=== PATIENT | male | born 1995 | race Caucasian/White ===

== ENCOUNTER 2024-09-21 21:50 | Emergency (ER) | payer SELFPAY ==
[2024-09-21 21:56] VITALS: BP 123/74; PULSE 63; TEMP 36.4; O2SAT 97; BMI 22.4
--- NOTE | 2024-09-21 22:26 | PC.NURSE ---
Broken teeth left upper jaw line. States been on antibiotics and is traveling across country and lost his antibiotic
--- NOTE | 2024-09-21 22:30 | ED.DENTAL1 ---
HPI - Dental/Oral General Chief complaint: Dental/Oral Stated complaint: TOOTH ACHE Time Seen by Provider: 09/21/24 22:19 Source: patient Mode of arrival: walk-in Limitations: no limitations History of Present Illness HPI Narrative: dental abscess left upper molars. Was prescribed augmentin but did not store properly as he was driving long distance and the medication turned brown. He is driving back to [place]. He has pill dysphagia and is requesting liquid antibiotics. No fever or chills. Did have left maxilla facial swelling when he started the antibiotics but this has improved. no fevre or chills. No problem swallowing Related Data Allergies Allergy/AdvReac Type Severity Reaction Status Date / Time clindamycin Allergy Anaphylaxis Verified 09/21/24 22:09 epinephrine Allergy Anaphylaxis Verified 09/21/24 22:09 ibuprofen (From Motrin) Allergy Anaphylaxis Verified 09/21/24 22:09 ct dye Allergy Anaphylaxis Uncoded 09/21/24 22:09 Review of Systems ROS Status of ROS 10 or more systems reviewed and unremarkable except as noted in history and below PFSH PFSH Social History Little interest or pleasure in doing things: not at all Feeling down, depressed, or hopeless: not at all Exam Constitutional Vital Signs, click to edit/add: Last Vital Signs Temp 97.5 F L 09/21/24 21:56 Pulse 63 09/21/24 21:56 Resp 16 09/21/24 21:56 BP 123/74 09/21/24 21:56 Pulse Ox 97 09/21/24 21:56 O2 Del Method Room Air 09/21/24 21:56 Common normals: no apparent distress, average body habitus, oriented x3, no limitations, healthy appearing, alert and well nourished [facility] Common normals: normocephalic Other: multiple dental caries. mild swelling left upper pergingival molars Eye Common normals: EOMs intact bilaterally and conjunctivae normal Respiratory Common normals: normal respiratory effort, no retractions, no use of accessory muscles and clear to auscultation bilaterally Cardio Common normals: regular rate, regular rhythm, S1 normal heart sound and S2 normal heart sound Extremity Common normals: normal to inspection and full ROM Neuro Common normals: oriented x3, CN's II-XII intact bilaterally, moves all extremities and no focal motor deficits Psych Appearance: grossly normal Course Vital Signs Vital signs: Vital Signs Temperature 97.5 F L 09/21/24 21:56 Pulse Rate 63 09/21/24 21:56 Respiratory Rate 16 09/21/24 21:56 Blood Pressure 123/74 09/21/24 21:56 Pulse Oximetry 97 09/21/24 21:56 Oxygen Delivery Method Room Air 09/21/24 21:56 Temperature 97.5 F L 09/21/24 21:56 Pulse Rate 63 09/21/24 21:56 Respiratory Rate 16 09/21/24 21:56 Blood Pressure 123/74 09/21/24 21:56 Pulse Oximetry 97 09/21/24 21:56 Oxygen Delivery Method Room Air 09/21/24 21:56 MDM - Dental/Oral MDM Narrative Medical decision making narrative: presents with left molar dental abscess partially treated. He was taken augmentin but did not store properly as [place]. Here requesting refill of augmentin that was provided. Patient discharged in stable condition Discharge Plan Discharge Chief Complaint: Dental/Oral Clinical Impression: Dental abscess Patient Disposition: Home, Self-Care Condition: Good Mode of Transportation: Private Vehicle Print Language: Czech Instructions: Dental Abscess (ED) Additional Instructions: follow up with your dentist
[2024-09-21] MEDS: AMOXICILLIN/CLAV SUSP 250-62.5 MG/5 ML 75 ML 500 MG PO (22:41)
== END 2024-09-21 22:51 | disposition home or self-care (01) ==
PROVIDERS: Emergency Provider Internal Medicine
DX: K04.7 Periapical abscess without sinus (principal); K08.89 Other specified disorders of teeth and supporting structures
CPT/HCPCS: 99283